=== PATIENT | male | born 1975 | race Caucasian/White ===

== ENCOUNTER 2018-09-27 01:31 | Emergency (ER) | payer OTHER ==
[2018-09-27 02:48] VITALS: TEMP 98.4; BMI 30.7
--- NOTE | 2018-09-27 03:25 | PDOC ---
Attending Attestation - Resident Resident Name: MayelaPasquale - ED Attending Attestation I have performed the following: I have examined & evaluated the patient, The case was reviewed & discussed with the resident, I agree w/resident's findings & plan - HPI HPI: 09/27/18 20:03 Pt comes with thrombosed and painful hemorrhoid located at 6 o'clock to 11 0' clock - Physicial Exam PE: 09/27/18 20:04 Agree with resident exam. Large external hemorrhoid; bluish/black in color - reflecting the large painful clots within. - Medical Decision Making 09/27/18 20:05 Pt improved. Home with sitz baths; advised to return for pain or fever. Pt was not placed on abx. Advised to keep the area clean. Procedures - Additional Procedures Additional Procedures: other (pt's thrombosed hemorrhoid was anethetized and area cleaned with sterile surgical wipes; elliptical excision made, with removal of 3 separate clots.)
--- NOTE | 2018-09-27 04:10 | PDOC ---
History of Present Illness - General Chief Complaint: Hemorrhoids Stated Complaint: BUMP IN BEHIND Time Seen by Provider: 09/27/18 03:17 History Source: Patient Exam Limitations: No Limitations - History of Present Illness Initial Comments: 09/27/18 04:07 42 yo male no sig pmh presents to the ED with rectal pain. Pt states he woke up this morning with pain around his his anus and felt a mass in the area. Denies hx or abscess or hemorrhoids, F/C/N/V, difficulty defecating or blood in his stool. Past History - Past Medical History Allergies/Adverse Reactions: Allergies Allergy/AdvReac Type Severity Reaction Status Date / Time No Known Allergies Allergy Verified 09/27/18 05:18 - Suicide/Smoking/Psychosocial Hx Smoking History: Never smoked *Physical Exam - Vital Signs Last Vital Signs Temp Pulse Resp BP Pulse Ox 98.4 F 77 19 164/91 98 09/27/18 01:33 09/27/18 01:33 09/27/18 01:33 09/27/18 01:33 09/27/18 01:33 Medical Decision Making - Medical Decision Making 09/27/18 05:50 Thrombosed hemorrhoid I&D without complications *DC/Admit/Observation/Transfer Diagnosis at time of Disposition: Thrombosed external hemorrhoids - Discharge Dispostion Disposition: HOME Condition at time of disposition: Stable Decision to Admit order: No - Referrals Referrals: Marcelo Vinson MD [Primary Care Provider] - Thompson Holland MD [Staff Physician] - - Patient Instructions Printed Discharge Instructions: DI for Hemorrhoids Additional Instructions: Please see your Primary Doctor within the next 48 hours. Keep the wound clean and dry for the next 48 hours. Do Sitz bathes to help with hemorrhoids and pain. Return to the ER for new or concerning symptoms including but not limited to: high fevers, severe pain or excessive bleeding from incision site, loss of sensation around your genitals or fecal incontinence. Thank you - Post Discharge Activity
[2018-09-27] MEDS ORDERED: LIDOCAINE VISCOUS 2% ORAL/TOP 100 ML BOTTLE MM ONE (04:17)
[2018-09-27] MEDS ORDERED: LIDOCAINE VISCOUS 2% ORAL/TOP 20 ML UNIT-DOSE CUP ONE (04:28)
[2018-09-27 06:13] VITALS: BP 159/90; PULSE 72
== END 2018-09-27 06:10 | disposition home or self-care (01) ==
LOC: JER 01:31
DX: K64.5 Perianal venous thrombosis (principal)
CPT/HCPCS: 99282-25

== ENCOUNTER 2020-04-12 17:52 | Emergency (ER) | payer OTHER ==
[2020-04-12 18:02] VITALS: BP 154/99; PULSE 100; TEMP 98.9; BMI 30.7
== END 2020-04-12 18:21 | disposition home or self-care (01) ==
LOC: JERFT 17:52
DX: R21 Rash and other nonspecific skin eruption (principal); B35.6 Tinea cruris
CPT/HCPCS: 99282-25

== ENCOUNTER 2021-09-19 21:47 | Emergency (ER) | payer OTHER ==
[2021-09-19 21:59] VITALS: BP 164/84; PULSE 80; TEMP 97.6; BMI 30.7
== END 2021-09-20 01:19 | disposition home or self-care (01) ==
LOC: JER 21:47
DX: M62.831 Muscle spasm of calf (principal)
CPT/HCPCS: 93971-TC; 99284-25